=== PATIENT | female | born 1950 | race Caucasian/White ===

== ENCOUNTER 2020-05-02 10:32 | Emergency (ER) | payer MEDICARE, SELFPAY ==
--- NOTE | ~2020-05-02 | XR_ITS ---
XR chest 1V portable 05/02/2020 11:39 Indication: Weakness, nausea and vomiting. Dyspnea. Procedure: AP portable chest Comparison: No prior studies for comparison. Findings: There is airspace disease overlying the right hilum, consistent with pneumonia. Borderline heart size. No pleural effusion, edema or pneumothorax. No acute osseous abnormality. Impression: 1: Focal airspace disease overlying the right hilum, consistent with pneumonia. Reviewed, dictated and finalized at location B. Impression: 1: Focal airspace disease overlying the right hilum, consistent with pneumonia.
[2020-05-02 10:31] VITALS: BP 145/72; PULSE 81; RESP 22; TEMP 37.4; O2SAT 97
[2020-05-02 10:38] VITALS: PULSE 78
--- NOTE | 2020-05-02 10:38 | ECG_ITS ---
Measurements Intervals [place] Rate: 74 P: 36 DC: 160 QRS: 4 QRSD: 113 T: 19 QT: 387 QTc: 431 Interpretive Statements SINUS RHYTHM INTRAVENTRICULAR CONDUCTION DELAY BORDERLINE ECG Electronically Signed On 05-02-2020 12:02:04 CDT by Gabe Vazquez D.O.
[2020-05-02 11:02] LABS: Basophils Absolute Auto 0.1 K/mm3 (0.0-0.1); Basophils Percent Auto 0.4 % (0.2-1.2); Eosinophils Percent Auto 0.1 % (0-4.4); Hematocrit 45.4 % (37.0-47.0); Hemoglobin 14.9 g/dL (12.0-15.0); Immature Granulocyte Absolute 0.13 K/mm3 (0.00-0.031); Immature Granulocyte Percent A 0.9 % (0-0.5); Lymphocytes Absolute Auto 1.04 K/mm3 (0.9-3.2); Lymphocytes Percent Auto 6.9 % (18.3-44.2); Mean Corpuscular HGB Conc 32.8 g/dl (32-36); Mean Corpuscular Volume 94.6 fl (80-100); Mean Platelet Volume 9.6 fl (7.4-10.4); Monocytes Absolute Auto 1.4 K/mm3 (0.1-0.6); Monocytes Percent Auto 9.1 % (2.6-8.5); Neutrophils Absolute Auto 12.4 K/mm3 (1.3-6.7); Neutrophils Percent Auto 82.6 % (45.5-73.1); Platelet Count Result 424 k/mm3 (150-375); Red Cell Distribution Width 12.3 % (11.5-14.5)
[2020-05-02 11:14] LABS: Alanine Aminotransferase 56 U/L (4-35); Albumin Level 4.2 g/dL (3.5-5.1); Alkaline Phosphatase 192 U/L (38-126); Anion Gap 11 mmol/L (8-16); Aspartate Amino Transferase 48 U/L (14-36); Bilirubin,Total 1.1 mg/dL (0.2-1.3); Blood Urea Nitrogen 19 mg/dL (7-17); Calcium 9.4 mg/dL (8.4-10.2); Carbon Dioxide 28 mmol/L (22-30); Chloride 99 mmol/L (98-107); Estimated CRCL calculation 48 ml/min; Estimated Glomerular Filt Rate > 60; Glucose 135 mg/dL (65-105); Lipase 68 U/L (23-300); Potassium 3.5 mmol/L (3.4-5.0); Sodium 138 mmol/L (137-145)
[2020-05-02 11:26] LABS: Troponin I < 0.012 ng/mL (0.000-0.034)
[2020-05-02 11:33] VITALS: BP 134/101; PULSE 75; RESP 20; O2SAT 96
[2020-05-02 12:08] LABS: Add Urine Microscopic? YES; Appearance Urine Clear (Clear); Bacteria Urine Trace /hpf; Bilirubin Urine 1+ (Negative); Blood Urine Negative (Negative); Color Urine Amber (Yellow); Glucose Urine UA Negative (Negative); Hyaline Casts Urine 15-19 /lpf; Ketones Urine Trace mg/dL (Negative); Leukocyte Esterase Ur Trace LEU/UL (Negative); Mucus Urine Moderate /lpf; Nitrate Urine Negative (Negative); Protein Urine 2+ mg/dL (Negative); RBC Urine 0-2 /hpf (0-2); Squamous Epithelial Cell Urine Occasional /hpf (Few); Transitional Epi Cells Urine Rare /hpf (None Seen)
[2020-05-02 12:16] LABS: Specific Grav Ur 1.036 (1.001-1.035)
[2020-05-02 12:24] VITALS: BP 148/62; PULSE 72; RESP 22; O2SAT 92
--- NOTE | 2020-05-02 13:02 | ED.GENADULT ---
HPI - General Adult General Chief complaint: Weakness Stated complaint: WEAKNESS/FEVER/N/V Time Seen by Provider: 05/02/20 10:37 Source: patient Mode of arrival: EMS Limitations: no limitations History of Present Illness HPI narrative: Patient presents with chief complaint of fatigue, nausea since Thursday. Patient states she has had nausea but not been eating very much and he has not had more than 2-3 episodes of vomiting. She denies diarrhea. Patient denies having fever, chills, headache, loss of taste or smell body aches, persistent cough, abdominal pain. Patient states that she was Covid tested at [facility] yesterday but has not yet ready received her results. Patient denies any chest pain or shortness of breath. Patient denies any recent falls or other injuries. Patient states that her usual symptoms are very vague she does not like that she has no low energy Days after he came to the emergency department to be evaluated. Encouraged Related Data Home Medications Medication Instructions Recorded Confirmed methocarbamol 500 mg PO HS 05/02/20 Allergies Allergy/AdvReac Type Severity Reaction Status Date / Time alendronate sodium Allergy Unknown Unknown Verified 05/02/20 10:39 celecoxib Allergy Unknown Unknown Verified 05/02/20 10:39 clindamycin Allergy Unknown Nausea and Verified 05/02/20 10:39 Vomiting Sulfa (Sulfonamide Allergy Unknown Nausea and Verified 05/02/20 10:39 Antibiotics) Vomiting denosumab [From Prolia] AdvReac Severe Vomiting Verified 05/02/20 10:39 ibandronate sodium AdvReac Severe Vomiting Verified 05/02/20 10:39 [From Boniva] tramadol [From Ultram] AdvReac Unknown Verified 05/02/20 10:39 STEROID Allergy Unknown NAUSEOUS Uncoded 05/02/20 10:39 TAPE AdvReac Unknown BLISTERS Uncoded 05/02/20 10:39 Review of Systems Review of Systems: Narrative: CONSTITUTIONAL: Reports fatigue denies fever, chills, or sweats. EYES: Denies visual changes, redness, or discharge. ENT: Denies rhinorrhea, congestion, sore throat, or otalgia. CARDIOVASCULAR: Denies chest pain, palpitations, or edema. RESPIRATORY: Denies cough or dyspnea. GASTROINTESTINAL: Reports nausea denies abdominal pain, vomiting, or diarrhea. GENITOURINARY: Denies dysuria or hematuria. SKIN: Denies rash or itching. MUSCULOSKELETAL: Denies back pain, joint pain, or myalgia. NEUROLOGIC: Denies headache, numbness, dizziness, or weakness. PSYCHIATRIC: Denies anxiety or depression. [facility] Past Medical History Medical History (Updated 05/02/20 @ 13:27 by Carrol Hernandez PA-C) Angina at rest Arthritis Cardiac disorder Stent placed 2005, GERD (gastroesophageal reflux disease) Hypercholesterolemia Hypertension Musculoskeletal disorder Left Achilles pain, compound vertebral fracture. Postmenopausal Tubal ligation evaluation Surgical History Surgical History H/O Spinal surgery Lumbar fusion History of hysterectomy Family History Family History Mother Diabetes mellitus, Onset Age: 75 Hypertension, Onset Age: 75 Father Family history of cardiovascular disease Other Family history of arthritis Social History Social History Smoking status: Never smoker Alcohol intake: never Exam Narrative: Exam Narrative: GENERAL: Well-appearing, well-nourished, and in no acute distress. HEAD: Normocephalic, atraumatic. EYES: PERRLA and EOMI. ENT: Nares clear, no rhinorrhea or epistaxis. Mucous membranes moist. Oropharynx without tonsillar hypertrophy exudate or other lesions. Bilateral TMs pearly with clear serous fluid bilaterally CHEST: Clear to auscultation. No respiratory distress. No wheezes rales or rhonchi HEART: Regular rate and rhythm. No murmur heard. Normal peripheral pulses. ABDOMEN: Soft, nontender to palpation, nondistended, normal active bowel donato
[2020-05-02 13:16] VITALS: BP 136/80; PULSE 82; RESP 19; TEMP 38.2; O2SAT 97
[2020-05-02] MEDS: SODIUM CHLORIDE 0.9% IV 1,000 ML 999 ML IV CONT (13:16)
[2020-05-02 14:01] VITALS: BP 139/68; PULSE 80; RESP 18; O2SAT 95
== END 2020-05-02 14:29 | disposition home or self-care (01) ==
PROVIDERS: Physician Assistant; Emergency Provider Emergency Medicine; PCP Emergency Medicine
DX: N39.0 Urinary tract infection, site not specified (principal); J18.9 Pneumonia, unspecified organism; I10 Essential (primary) hypertension; E78.00 Pure hypercholesterolemia, unspecified; M19.90 Unspecified osteoarthritis, unspecified site; Z95.5 Presence of coronary angioplasty implant and graft; Z98.1 Arthrodesis status; I45.9 Conduction disorder, unspecified
CPT/HCPCS: 36415; 71045; 80053; 81001; 83690; 84484; 85025; 87086; 87088; 87804; 93005; 96360; 99284; J7030

== ENCOUNTER → 2020-11-13 13:31 | Outpatient (CLI) | payer MEDICARE, SELFPAY ==
--- NOTE | ~2020-11-13 | MM_ITS ---
EXAMINATION: MM screening [facility] BI w opal HISTORY: Screening TECHNIQUE: Craniocaudal and mediolateral oblique 3-D tomosynthesis images were obtained and synthetic 2-D images were generated. CAD analysis was submitted and interpreted. COMPARISON: Comparison to multiple prior studies sequentially, with oldest reviewed study dated 09/09. BREAST PARENCHYMAL COMPOSITION: There are scattered areas of fibroglandular density. FINDINGS: There is no evidence of suspicious mass, calcification, or architectural distortion to sugg est malignancy in either breast. There has been no suspicious interval change. IMPRESSION: 1. No mammographic evidence of malignancy. 2. Recommend routine screening mammography in one year. BI-RADS Category 1: Negative Reviewed, dictated and finalized at location A.
== END ==
PROVIDERS: PCP Emergency Medicine; Visit Provider Emergency Medicine
DX: Z12.31 Encounter for screening mammogram for malignant neoplasm of breast (principal)
CPT/HCPCS: 77063; 77067

== ENCOUNTER 2021-09-01 23:47 | Emergency (ER) | payer MEDICARE, SELFPAY ==
--- NOTE | ~2021-09-01 | XR_ITS ---
EXAMINATION: XR chest 2V EXAM DATE: 09/02/2021 00:34 INDICATION: SOB TECHNIQUE: Frontal and lateral projections of the chest obtained and reviewed. Comparison is made to prior examination from 05/02/2020. FINDINGS: There is a treated compression fracture, probably the L1 level. The lungs are clear. Ther e are no pleural effusions. The cardiomediastinal silhouette is within normal limits. There is no p neumothorax suspected. The bones and soft tissues are unremarkable. IMPRESSION: No acute cardiopulmonary findings. Reviewed, dictated and finalized at location A. HEN CLERK
[2021-09-01 23:57] VITALS: BP 180/80; PULSE 74; RESP 24; TEMP 36.9; O2SAT 95
[2021-09-02] VITALS (15 sets, daily range): BP systolic 127–167; BP diastolic 63–77; PULSE 58–81; RESP 15–16; O2SAT 93–100
--- NOTE | 2021-09-02 00:05 | ECG_ITS ---
Measurements Intervals [place] Rate: 62 P: 77 NE: 194 QRS: 57 QRSD: 113 T: 51 QT: 413 QTc: 422 Interpretive Statements SINUS RHYTHM INTRAVENTRICULAR CONDUCTION DELAY BASELINE ARTIFACT- I, II, III, AVL, AVF, V1-V2 BORDERLINE ECG Electronically Signed On 09-02-2021 7:58:49 [employer]ENCE INST[employer]EM[employer] by Gabe Vazquez D.O.
[2021-09-02 00:15] LABS: Basophils Absolute Auto 0.1 K/mm3 (0.0-0.1); Basophils Percent Auto 0.9 % (0.2-1.2); Eosinophils Absolute Auto 0.4 K/mm3 (0-0.3); Eosinophils Percent Auto 3.7 % (0-4.4); Hematocrit 43.9 % (37.0-47.0); Hemoglobin 14.3 g/dL (12.0-15.0); Immature Granulocyte Absolute 0.05 K/mm3 (0.00-0.031); Immature Granulocyte Percent A 0.5 % (0-0.5); Lymphocytes Absolute Auto 3.68 K/mm3 (0.9-3.2); Lymphocytes Percent Auto 33.9 % (18.3-44.2); Mean Corpuscular HGB Conc 32.6 g/dl (32-36); Mean Corpuscular Hemoglobin 31.8 pg (26-34); Mean Corpuscular Volume 97.6 fl (80-100); Mean Platelet Volume 9.4 fl (7.4-10.4); Monocytes Absolute Auto 1.1 K/mm3 (0.1-0.6); Monocytes Percent Auto 9.9 % (2.6-8.5); Neutrophils Absolute Auto 5.6 K/mm3 (1.3-6.7); Neutrophils Percent Auto 51.1 % (45.5-73.1); Platelet Count Result 450 k/mm3 (150-375); Red Cell Distribution Width 12.1 % (11.5-14.5); White Blood Count 10.9 K/mm3 (4.5-10.0)
[2021-09-02 00:25] LABS: Alanine Aminotransferase 14 U/L (4-35); Albumin Level 4.2 g/dL (3.5-5.1); Alkaline Phosphatase 140 U/L (38-126); Anion Gap 11 mmol/L (8-16); Aspartate Amino Transferase 26 U/L (14-36); Bilirubin,Total 0.4 mg/dL (0.2-1.3); Blood Urea Nitrogen 26 mg/dL (7-17); Calcium 9.2 mg/dL (8.4-10.2); Carbon Dioxide 26 mmol/L (22-30); Chloride 104 mmol/L (98-107); Estimated CRCL calculation 38 ml/min; Estimated Glomerular Filt Rate 44; Glucose 110 mg/dL (65-110); Potassium 3.8 mmol/L (3.4-5.0); Sodium 141 mmol/L (137-145)
[2021-09-02] MEDS: ALBUTEROL SULFATE NEB 2.5 MG/0.5 ML INH 5 MG INHALATION (00:35)
--- NOTE | 2021-09-02 00:42 | ED.GENADULT ---
HPI - General Adult General Chief complaint: Shortness of Breath/Dyspnea Stated complaint: URI, SOB Time Seen by Provider: 09/01/21 23:55 History of Present Illness HPI narrative: 71-year-old female presenting to the emergency department for evaluation of increased shortness of breath that started this evening. Patient reports over the last 5 days she has had increased sinus pressure and nasal congestion. Patient states that tonight she had onset of difficulty breathing just prior to going to bed. Patient does take a water pill but denies any change in lower extremity swelling. Patient denies any associated chest pain with this. Patient not a smoker. Patient denies any prior history of underlying lung disease including asthma. Related Data Allergies Allergy/AdvReac Type Severity Reaction Status Date / Time alendronate sodium Allergy Unknown Unknown Verified 09/06/21 10:48 celecoxib Allergy Unknown Unknown Verified 09/06/21 10:48 clindamycin Allergy Unknown Nausea and Verified 09/06/21 10:48 Vomiting Sulfa (Sulfonamide Allergy Unknown Nausea and Verified 09/06/21 10:48 Antibiotics) Vomiting denosumab [From Prolia] AdvReac Severe Vomiting Verified 09/06/21 10:48 ibandronate sodium AdvReac Severe Vomiting Verified 09/06/21 10:48 [From Boniva] tramadol [From Ultram] AdvReac Unknown Verified 09/06/21 10:48 STEROID Allergy Unknown NAUSEOUS Uncoded 09/02/21 00:08 TAPE AdvReac Unknown BLISTERS Uncoded 09/02/21 00:08 Review of Systems Review of Systems: CONSTITUTIONAL: Denies fever, chills, or sweats. EYES: Denies visual changes, redness, or discharge. ENT: Denies rhinorrhea, congestion, sore throat, or otalgia. CARDIOVASCULAR: Denies chest pain, palpitations, or edema. RESPIRATORY: cough and SOB GASTROINTESTINAL: Denies abdominal pain, nausea, vomiting, or diarrhea. GENITOURINARY: Denies dysuria or hematuria. SKIN: Denies rash or itching. MUSCULOSKELETAL: Denies back pain, joint pain, or myalgia. [facility], [facility] Past Medical History Medical History (Updated 09/06/21 @ 14:26 by Mikey Kaur MD) Angina at rest Arthritis Cardiac disorder Stent placed 2005, GERD (gastroesophageal reflux disease) Hypercholesterolemia Hypertension Musculoskeletal disorder Left Achilles pain, compound vertebral fracture. Postmenopausal Tubal ligation evaluation Surgical History Surgical History H/O Spinal surgery Lumbar fusion History of hysterectomy Family History Family History Mother Diabetes mellitus, Onset Age: 75 Hypertension, Onset Age: 75 Father Family history of cardiovascular disease Other Family history of arthritis Social History Social History Smoking status: Never smoker Alcohol intake: never Gender identity (if verbalized by the patient): Female Exam Narrative: APPEARANCE: Well appearing, no pain, no distress, well-nourished. HEAD: normocephalic, atraumatic. EYES: PERRLA/EOMI, conjunctivae clear. NECK: Supple. No adenopathy, no masses. RESPIRATORY: Airway patent, respirations nonlabored. Clear to auscultation bilaterally, no rales, rhonchi, wheezing. CARDIOVASCULAR: Regular rate and rhythm without murmurs rubs or gallops. ABDOMINAL: Soft, nontender, nondistended, normal bowel sounds MUSCULOSKELETAL: Moves all extremities. Strength/ROM intact, No edema, No calf tenderness. NEURO: Alert. Cranial nerves II through XII intact. Good coordination SKIN: Warm, dry. Normal Color Course Course Emergency Course: Patient did feel improved with treatment emerge department. Patient was updated on results of her labs and imaging. All questions concerns were addressed. Vital Signs Vital signs: Vital Signs Temperature 98.4 F 09/01/21 23:57 Pulse Rate 74 09/01/21 23:57 Respiratory Rate 24 H 09/01/21 23:57 Blood Pressu
[2021-09-02 01:32] LABS: SARS-CoV-2 RNA PCR Negative
[2021-09-02] MEDS: AMOXICILLIN/CLAVULANATE K 875-125 MG TAB 1 TABLET PO (02:26)
--- NOTE | 2021-09-02 02:35 | PC.NURSE ---
Patient ambulated in [place]; beginning spO2 96% at rest; during ambulation, patient SpO2 between 93-94%; patient denied SOB; patient returned to room, SpO2 rebounded to 97% in approx. 30seconds
== END 2021-09-02 02:38 | disposition home or self-care (01) ==
PROVIDERS: Emergency Provider Emergency Medicine; PCP Emergency Medicine
DX: J40 Bronchitis, not specified as acute or chronic (principal); J01.01 Acute recurrent maxillary sinusitis; Z20.822 Contact with and (suspected) exposure to COVID-19; E78.00 Pure hypercholesterolemia, unspecified; I10 Essential (primary) hypertension; K21.9 Gastro-esophageal reflux disease without esophagitis; M19.90 Unspecified osteoarthritis, unspecified site; Z95.5 Presence of coronary angioplasty implant and graft; Z98.1 Arthrodesis status; I45.9 Conduction disorder, unspecified
CPT/HCPCS: 36415; 71046; 80053; 85025; 93005; 94640; 99283; A9270; C9803; U0003; U0005

== ENCOUNTER → 2022-01-06 15:35 | Outpatient (CLI) | payer MEDICARE, SELFPAY ==
--- NOTE | ~2022-01-06 | XR_ITS ---
EXAMINATION: XR chest 2V 01/06/2022 16:25 INDICATION: Acute upper respiratory infection PROCEDURE: 2 view chest COMPARISON: 09/02/2021 FINDINGS: The lungs are clear. Mild cardiomegaly. There are no pleural effusions. There is no pneumo thorax suspected. There is a lower thoracic compression fracture with vertebroplasty change. IMPRESSION: 1: NO ACUTE CARDIOPULMONARY DISEASE. Reviewed, dictated and finalized at location A.
== END ==
PROVIDERS: PCP Emergency Medicine; Visit Provider Emergency Medicine
DX: J06.9 Acute upper respiratory infection, unspecified (principal)
CPT/HCPCS: 71046

== ENCOUNTER → 2022-02-03 13:22 | Outpatient (CLI) | payer MEDICARE, SELFPAY ==
--- NOTE | ~2022-02-03 | MM_ITS ---
EXAMINATION: MM screening [place] BI w opal HISTORY: Screening mammogram TECHNIQUE: Craniocaudal and mediolateral oblique 3-D tomosynthesis images were obtained and synthetic 2-D images were generated. CAD analysis was submitted and interpreted. COMPARISON: 11/2020, 10/28/2018, 08/27/2016 bilateral screening mammogram examinations BREAST PARENCHYMAL COMPOSITION: The breasts are almost entirely fatty. FINDINGS: There is no evidence of suspicious mass, calcification, or architectural distortion to sugg est malignancy in either breast. There has been no suspicious interval change. IMPRESSION: 1. No mammographic evidence of malignancy. 2. Recommend routine screening mammography in one year. BI-RADS Category 1: Negative Reviewed, dictated and finalized at location A.
== END ==
PROVIDERS: PCP Emergency Medicine; Visit Provider Emergency Medicine
DX: Z12.31 Encounter for screening mammogram for malignant neoplasm of breast (principal)
CPT/HCPCS: 77063; 77067

== ENCOUNTER 2022-04-10 21:50 | Emergency (ER) | payer MEDICARE, SELFPAY ==
[2022-04-10] VITALS (13 sets, daily range): BP systolic 140–166; BP diastolic 65–102; PULSE 50–68; RESP 12–18; TEMP 36.5; O2SAT 95–98
--- NOTE | ~2022-04-10 | XR_ITS ---
EXAMINATION: XR chest 2V DATE: 04/10/2022 22:49 INDICATION: Palpitations TECHNIQUE: PA and lateral views of the chest were obtained. COMPARISON: Chest radiograph dated 01/06/2022 FINDINGS: The lungs remain clear with no focal airspace opacities, pulmonary edema, pleural effusion or pneumot horax. Mild cardiomegaly. Calcified right hilar lymph nodes consistent with old granulomatous disease . Thoracolumbar compression fractures with change of prior vertebroplasty. IMPRESSION: 1. Mild cardiomegaly. Reviewed, dictated and finalized at location A. IMPRESSION: 1. Mild cardiomegaly.
--- NOTE | 2022-04-10 21:51 | ECG_ITS ---
Measurements Intervals [place] Rate: 57 P: 27 MD: 203 QRS: 14 QRSD: 120 T: 7 QT: 428 QTc: 419 Interpretive Statements SINUS BRADYCARDIA INFERIOR INFARCT, AGE INDETERMINATE BASELINE ARTIFACT- I, III, AVR, AVL, AVF ABNORMAL ECG COMPARED TO ECG 09/02/2021 00:05:16 SINUS BRADYCARDIA NOW PRESENT MYOCARDIAL INFARCT FINDING NOW PRESENT Electronically Signed On 04-11-2022 7:10:11 CDT by Gabe Vazquez D.O.
--- NOTE | 2022-04-10 22:45 | ED.ARRPALP ---
HPI - Arrhythmia/Palpitations General Chief Complaint: Arrhythmia/Palpitations Stated Complaint: palpitations Time Seen by Provider: 04/10/22 22:22 Source: RN notes reviewed History of Present Illness HPI narrative: Patient presents emergency room from home for heart palpitations. Patient states that this evening she was sitting at home watching TV when she began to feel like her heart was racing. She states that symptoms lasted for approximately 30 minutes and resolved on their own and she is no longer feeling the heart palpitations she denies having any chest pain or shortness of breath with the episode she denies any previous history of heart arrhythmia denies any fevers or chills abdominal pain nausea vomiting Related Data Allergies Allergy/AdvReac Type Severity Reaction Status Date / Time alendronate sodium Allergy Unknown Unknown Verified 03/12/22 11:24 celecoxib Allergy Unknown Unknown Verified 03/12/22 11:24 clindamycin Allergy Unknown Nausea and Verified 03/12/22 11:24 Vomiting Sulfa (Sulfonamide Allergy Unknown Nausea and Verified 03/12/22 11:24 Antibiotics) Vomiting denosumab [From Prolia] AdvReac Severe Vomiting Verified 03/12/22 11:24 ibandronate sodium AdvReac Severe Vomiting Verified 03/12/22 11:24 [From Boniva] tramadol [From Ultram] AdvReac Unknown Verified 03/12/22 11:24 STEROID Allergy Unknown NAUSEOUS Uncoded 03/12/22 11:24 TAPE AdvReac Unknown BLISTERS Uncoded 03/12/22 11:24 Review of Systems Review of Systems: Gen.: Denies fevers or chills ENT: Denies congestion Respiratory: Denies shortness of breath or cough CV: See HPI GI: Denies abdominal pain nausea, emesis or diarrhea Musculoskeletal: Denies back pain or muscle pain Neuro: Denies numbness, tingling, weakness or focal weakness Skin: Denies rash Except as documented, all other systems reviewed and negative [facility] Past Medical History Medical History Angina at rest Arthritis Body mass index [BMI] 35.0-35.9, adult (06/22/17) Body mass index [BMI] 36.0-36.9, adult (05/25/17) Body mass index [BMI] 37.0-37.9, adult (01/29/16) Cardiac disorder Stent placed 2005, Chronic pain of left ankle CKD (chronic kidney disease) stage 3, GFR 30-59 ml/min Contact dermatitis and eczema Fatigue Foot tendinitis GERD (gastroesophageal reflux disease) Heart failure, unspecified Hypercholesterolemia Hypertension Mixed stress and urge urinary incontinence Musculoskeletal disorder Left Achilles pain, compound vertebral fracture. Other chronic pain Pes planus of left foot Polyosteoarthritis, unspecified Posterior tibial tendinitis, left leg Postmenopausal Respiratory tract congestion with cough Snoring Tubal ligation evaluation URI, acute Vitamin D deficiency Surgical History Surgical History H/O Spinal surgery Lumbar fusion History of hysterectomy Family History Family History Mother Diabetes mellitus, Onset Age: 75 Hypertension, Onset Age: 75 Father Family history of cardiovascular disease Other Family history of arthritis Social History Social History Smoking status: Never smoker Alcohol intake: never Gender identity (if verbalized by the patient): Female Exam Narrative: APPEARANCE: No acute distress, nontoxic, resting in bed EYES: EOMI HEENT: Normocephalic, atraumatic, OMM RESPIRATORY: No respiratory distress Clear to auscultation bilaterally with no rhonchi wheezing or rales. CARDIOVASCULAR: Regular rate and rhythm without murmurs rubs or gallops. ABDOMINAL: Soft, nontender, nondistended, no rebound or guarding MUSCULOSKELETAl: Moves all extremities. No clubbing, cyanosis or edema. NEURO: Awake and alert. Following commands, speech normal, no focal deficits SKIN:: Warm, dry. No rashes
[2022-04-10 23:03] LABS: Basophils Absolute Auto 0.1 K/mm3 (0.0-0.1); Basophils Percent Auto 1.4 % (0.2-1.2); Eosinophils Absolute Auto 0.6 K/mm3 (0-0.3); Eosinophils Percent Auto 7.3 % (0-4.4); Hematocrit 43.5 % (37.0-47.0); Hemoglobin 14.3 g/dL (12.0-15.0); Immature Granulocyte Absolute 0.02 K/mm3 (0.00-0.031); Immature Granulocyte Percent A 0.3 % (0-0.5); Lymphocytes Absolute Auto 3.28 K/mm3 (0.9-3.2); Lymphocytes Percent Auto 41.5 % (18.3-44.2); Mean Corpuscular HGB Conc 32.9 g/dl (32-36); Mean Corpuscular Hemoglobin 31.7 pg (26-34); Mean Corpuscular Volume 96.5 fl (80-100); Mean Platelet Volume 9.7 fl (7.4-10.4); Monocytes Absolute Auto 0.8 K/mm3 (0.1-0.6); Monocytes Percent Auto 10.5 % (2.6-8.5); Neutrophils Absolute Auto 3.1 K/mm3 (1.3-6.7); Platelet Count Result 416 k/mm3 (150-375); Red Blood Count 4.51 M/mm3 (4.2-5.4); Red Cell Distribution Width 12.7 % (11.5-14.5); White Blood Count 7.9 K/mm3 (4.5-10.0)
[2022-04-10 23:14] LABS: INR 0.9; Prothrombin Time 12.1 Seconds (11.1-14.7)
[2022-04-10 23:15] LABS: Alanine Aminotransferase 22 U/L (6-35); Albumin Level 4.3 g/dL (3.5-5.1); Alkaline Phosphatase 119 U/L (38-126); Anion Gap 11 mmol/L (8-16); Aspartate Amino Transferase 26 U/L (14-36); Bilirubin,Total 0.6 mg/dL (0.2-1.3); Blood Urea Nitrogen 29 mg/dL (7-17); Carbon Dioxide 27 mmol/L (22-30); Chloride 102 mmol/L (98-107); Estimated CRCL calculation 41 ml/min; Estimated Glomerular Filt Rate 49; Glucose 106 mg/dL (65-110); Lipase 83 U/L (23-300); Magnesium 2.3 mg/dL (1.6-2.3); Partial Thromboplastin Time 30.7 SECONDS (22.3-36.8); Sodium 140 mmol/L (137-145)
[2022-04-10 23:25] LABS: Troponin I < 0.012 ng/mL (0.000-0.034)
== END 2022-04-10 23:41 | disposition home or self-care (01) ==
LOC: ANHED 23:34
PROVIDERS: Emergency Provider Emergency Medicine; PCP Emergency Medicine
DX: R00.2 Palpitations (principal); I13.0 Hypertensive heart and chronic kidney disease with heart failure and stage 1 through stage 4 chronic kidney disease, or unspecified chronic kidney disease; I50.9 Heart failure, unspecified; N18.30 Chronic kidney disease, stage 3 unspecified; K21.9 Gastro-esophageal reflux disease without esophagitis; N39.46 Mixed incontinence; M19.90 Unspecified osteoarthritis, unspecified site; E55.9 Vitamin D deficiency, unspecified; Z90.710 Acquired absence of both cervix and uterus; Z98.1 Arthrodesis status; Z95.5 Presence of coronary angioplasty implant and graft; I51.7 Cardiomegaly; R00.1 Bradycardia, unspecified; R94.31 Abnormal electrocardiogram [ECG] [EKG]
CPT/HCPCS: 36415; 71046; 80053; 83690; 83735; 84484; 85025; 85610; 85730; 93005; 99284

== ENCOUNTER 2022-08-19 12:04 | Emergency (ER) | payer MEDICARE, SELFPAY ==
--- NOTE | ~2022-08-19 | XR_ITS ---
Clinical Indication: Cough And lateral views of the chest: Comparison: 04/10/2022 Findings: The lungs are clear, without evidence of focal consolidation or pleural effusion. Cardiome diastinal silhouette is within normal limits. Stable compression fracture with vertebroplasty cement at probably L1. Impression: Clear lungs. Reviewed, dictated and finalized at [facility]. OMS EXAMINER Impression: Clear lungs.
--- NOTE | 2022-08-19 12:12 | ED.URI ---
HPI - URI/Sore Throat General Chief Complaint: Upper Respiratory Infection Stated Complaint: WHEEZING/COUGH Time Seen by Provider: 08/19/22 12:13 Source: patient Mode of arrival: ambulatory Limitations: no limitations History of Present Illness HPI Narrative: 72-year-old female presents with complaint for week. Reports today worse, feeling short of breath with exertion. Afebrile. States that she was taking [id number] cough medication which was helping last night she took and it did not help at all. States she was up all night coughing. States last night while lying in bed she heard herself wheezing. Denies nausea vomiting diarrhea. Denies chest pain. All systems reviewed and negative except as noted above. Related Data Home Medications Medication Instructions Recorded Confirmed cholecalciferol (vitamin D3) 25 25 mcg PO DAILY 07/29/22 08/19/22 mcg (1,000 unit) capsule magnesium 250 mg tablet 250 mg PO DAILY 07/29/22 08/19/22 omega 3-pwm-net-fish oil 120 1 cap PO DAILY 07/29/22 08/19/22 mg-180 mg-500 mg capsule (Fish Oil) Allergies Allergy/AdvReac Type Severity Reaction Status Date / Time alendronate sodium Allergy Unknown Unknown Verified 08/19/22 12:08 celecoxib Allergy Unknown Unknown Verified 08/19/22 12:08 clindamycin Allergy Unknown Nausea and Verified 08/19/22 12:08 Vomiting Sulfa (Sulfonamide Allergy Unknown Nausea and Verified 08/19/22 12:08 Antibiotics) Vomiting denosumab [From Prolia] AdvReac Severe Vomiting Verified 08/19/22 12:08 ibandronate sodium AdvReac Severe Vomiting Verified 08/19/22 12:08 [From Boniva] tramadol [From Ultram] AdvReac Unknown Verified 08/19/22 12:08 STEROID AdvReac Unknown NAUSEOUS Uncoded 08/19/22 12:39 TAPE AdvReac Unknown BLISTERS Uncoded 08/19/22 12:08 Review of Systems Review of Systems: CONSTITUTIONAL: Denies fever, chills, or sweats. EYES: Denies visual changes, redness, or discharge. ENT: Denies rhinorrhea, congestion, sore throat, or otalgia. CARDIOVASCULAR: Denies chest pain, palpitations, or edema. RESPIRATORY: Reports cough or dyspnea with exertion. GASTROINTESTINAL: Denies abdominal pain, nausea, vomiting, or diarrhea. GENITOURINARY: Denies dysuria or hematuria. SKIN: Denies rash or itching. MUSCULOSKELETAL: Denies back pain, joint pain, or myalgia. NEUROLOGIC: Denies headache, numbness, or weakness. PSYCHIATRIC: Denies anxiety or depression. All other systems reviewed are negative, except as documented in HPI. [facility] Past Medical History Medical History Angina at rest Arthritis Body mass index [BMI] 35.0-35.9, adult (06/22/17) Body mass index [BMI] 36.0-36.9, adult (05/25/17) Body mass index [BMI] 37.0-37.9, adult (01/29/16) Cardiac disorder Stent placed 2005, Chronic pain of left ankle CKD (chronic kidney disease) stage 3, GFR 30-59 ml/min Contact dermatitis and eczema Fatigue Foot tendinitis GERD (gastroesophageal reflux disease) Heart failure, unspecified Hypercholesterolemia Hypertension Mixed stress and urge urinary incontinence Musculoskeletal disorder Left Achilles pain, compound vertebral fracture. Other chronic pain Pes planus of left foot Polyosteoarthritis, unspecified Posterior tibial tendinitis, left leg Postmenopausal Respiratory tract congestion with cough Snoring Tubal ligation evaluation URI, acute Vitamin D deficiency Surgical History Surgical History H/O Spinal surgery Lumbar fusion History of hysterectomy Family History Family History Mother Diabetes mellitus, Onset Age: 75 Hypertension, Onset Age: 75 Father Family history of cardiovascular disease Other Family history of arthritis Social History Social History Smoking status: Never smoker Alcohol intake: ne
[2022-08-19 12:14] VITALS: BP 152/74; PULSE 61; RESP 16; TEMP 37.2; O2SAT 98
== END 2022-08-19 12:43 | disposition home or self-care (01) ==
PROVIDERS: Emergency Provider Nurse Practitioner Family; PCP Emergency Medicine
DX: J20.9 Acute bronchitis, unspecified (principal); K21.9 Gastro-esophageal reflux disease without esophagitis; E78.00 Pure hypercholesterolemia, unspecified; M13.0 Polyarthritis, unspecified; E55.9 Vitamin D deficiency, unspecified; I13.0 Hypertensive heart and chronic kidney disease with heart failure and stage 1 through stage 4 chronic kidney disease, or unspecified chronic kidney disease; N18.30 Chronic kidney disease, stage 3 unspecified; I50.9 Heart failure, unspecified; I20.9 Angina pectoris, unspecified
CPT/HCPCS: 71046; 99213; G0463

== ENCOUNTER 2023-04-23 00:25 | Emergency (ER) | payer MEDICARE, SELFPAY ==
--- NOTE | ~2023-04-23 | XR_ITS ---
Clinical Indication: Cough PA and lateral views of the chest: Comparison: 08/19/2022 Findings: The lungs are clear, without evidence of focal consolidation or pleural effusion. Cardiome diastinal silhouette is stable, now with pacemaker device. There is vertebroplasty at L1. Impression: Clear lungs. Pacemaker device. Reviewed, dictated and finalized at location . Impression: Clear lungs. Pacemaker device.
[2023-04-23 00:31] VITALS: BP 127/50; PULSE 68; RESP 22; TEMP 37; O2SAT 92
--- NOTE | 2023-04-23 00:34 | ECG_ITS ---
Measurements Intervals [place] Rate: 66 P: 42 NV: 164 QRS: 50 QRSD: 110 T: 17 QT: 428 QTc: 449 Interpretive Statements SINUS RHYTHM POSSIBLE INFERIOR MYOCARDIAL INFARCTION , PROBABLY OLD [30 ms Q WAVE IN II/aVF] ABNORMAL ECG COMPARED TO ECG 04/10/2022 22:03:48 SINUS RHYTHM NOW PRESENT Electronically Signed On 04-23-2023 9:02:12 CDT by Hemal Baez M.D.
[2023-04-23 00:48] VITALS: BP 131/59; PULSE 65; PULSE 68; RESP 24; O2SAT 93
[2023-04-23 00:54] VITALS: O2SAT 93
[2023-04-23] MEDS: BENZONATATE 100 MG CAPSULE 200 MG PO (01:41)
[2023-04-23] MEDS: predniSONE 20 MG TABLET 40 MG PO (01:41)
--- NOTE | 2023-04-23 01:57 | PC.NURSE ---
Dropped a tesslon danyell on the floor, pulled one more from pyxis.
[2023-04-23 01:58] VITALS: BP 121/63; PULSE 66; RESP 19; O2SAT 93
--- NOTE | 2023-04-23 02:05 | ED.GENADULT ---
HPI - General Adult General Chief complaint: Shortness of Breath/Dyspnea Stated complaint: shortness of breath Time Seen by Provider: 04/23/23 01:09 History of Present Illness HPI narrative: Patient is a 73-year-old female presents emerged department with chief complaint of cough and increasing shortness of breath. The patient reports she has had a cough been productive of yellowish-green sputum patient reports symptoms been ongoing for several weeks. Patient states that she normally has an episode like this every year about this time and normally gets treated with antibiotics and sometimes is treated with steroids the patient does report she has been wheezing some. The patient denies chest pain denies lower extremity edema Related Data Home Medications Medication Instructions Recorded Confirmed cholecalciferol (vitamin D3) 25 25 mcg PO DAILY 07/29/22 03/20/23 mcg (1,000 unit) capsule magnesium 250 mg tablet 250 mg PO DAILY 07/29/22 03/20/23 omega 5-vti-wcp-fish oil 120 1 cap PO DAILY 07/29/22 03/20/23 mg-180 mg-500 mg capsule (Fish Oil) Allergies Allergy/AdvReac Type Severity Reaction Status Date / Time albuterol Allergy Intermediate Confusion Verified 04/23/23 00:52 alendronate sodium Allergy Unknown Unknown Verified 04/23/23 00:52 celecoxib Allergy Unknown Unknown Verified 04/23/23 00:52 clindamycin Allergy Unknown Nausea and Verified 04/23/23 00:52 Vomiting Sulfa (Sulfonamide Allergy Unknown Nausea and Verified 04/23/23 00:52 Antibiotics) Vomiting denosumab [From Prolia] AdvReac Severe Vomiting Verified 04/23/23 00:52 ibandronate sodium AdvReac Severe Vomiting Verified 04/23/23 00:52 [From Boniva] tramadol [From Ultram] AdvReac Unknown Verified 04/23/23 00:52 STEROID AdvReac Unknown NAUSEOUS Uncoded 04/23/23 00:52 TAPE AdvReac Unknown BLISTERS Uncoded 04/23/23 00:52 Review of Systems Review of Systems: A 10 system review of systems was completed on the patient and is negative except for what is stated in the HPI. Nursing and ancillary documentation was reviewed. [facility] Past Medical History Medical History Angina at rest Arthritis Body mass index [BMI] 35.0-35.9, adult (06/22/17) Body mass index [BMI] 36.0-36.9, adult (05/25/17) Body mass index [BMI] 37.0-37.9, adult (01/29/16) CAD (coronary artery disease) Cardiac disorder Stent placed 2005, Chronic pain of left ankle CKD (chronic kidney disease) stage 3, GFR 30-59 ml/min Contact dermatitis and eczema Fatigue Foot tendinitis GERD (gastroesophageal reflux disease) Heart failure, unspecified Hypercholesterolemia Hypertension Mixed stress and urge urinary incontinence Musculoskeletal disorder Left Achilles pain, compound vertebral fracture. Other chronic pain Paroxysmal atrial fibrillation Pes planus of left foot Polyosteoarthritis, unspecified Posterior tibial tendinitis, left leg Postmenopausal Respiratory tract congestion with cough Snoring Tubal ligation evaluation URI, acute Vitamin D deficiency Surgical History Surgical History H/O Spinal surgery Lumbar fusion History of hysterectomy Family History Family History Mother Diabetes mellitus, Onset Age: 75 Hypertension, Onset Age: 75 Father Family history of cardiovascular disease Other Family history of arthritis Social History Social History Smoking status: Never smoker Alcohol intake: never Lack of Transportation: No Lack of Food: Never True Current Housing: I Have Housing Concerned About Future Housing: No Difficulty Paying Gas/Electric Bills: No Difficulty Paying for Meds: No Currently Unemployed: No Education: High School Diploma/GED Difficulty w/ Childcare or Family Care: No
[2023-04-23 03:22] VITALS: BP 122/54; PULSE 60; RESP 20; O2SAT 93
== END 2023-04-23 03:10 | disposition home or self-care (01) ==
PROVIDERS: Emergency Provider Emergency Medicine; PCP Emergency Medicine
DX: J20.8 Acute bronchitis due to other specified organisms (principal); B96.89 Other specified bacterial agents as the cause of diseases classified elsewhere; I48.0 Paroxysmal atrial fibrillation; I25.10 Atherosclerotic heart disease of native coronary artery without angina pectoris; I13.0 Hypertensive heart and chronic kidney disease with heart failure and stage 1 through stage 4 chronic kidney disease, or unspecified chronic kidney disease; N18.30 Chronic kidney disease, stage 3 unspecified; I50.9 Heart failure, unspecified; E78.00 Pure hypercholesterolemia, unspecified; E55.9 Vitamin D deficiency, unspecified; N39.46 Mixed incontinence; K21.9 Gastro-esophageal reflux disease without esophagitis; M19.90 Unspecified osteoarthritis, unspecified site; Z98.1 Arthrodesis status; Z90.710 Acquired absence of both cervix and uterus
CPT/HCPCS: 71046; 93005; 99283; A9270; J7512

== ENCOUNTER → 2023-05-20 11:05 | Outpatient (CLI) | payer MEDICARE, SELFPAY ==
--- NOTE | ~2023-05-20 | MM_ITS ---
EXAMINATION: MM screening [place] BI w opal HISTORY: Screening TECHNIQUE: Craniocaudal and mediolateral oblique 3-D tomosynthesis images were obtained and synthetic 2-D images were generated. CAD analysis was submitted and interpreted. COMPARISON: Comparison to multiple prior studies sequentially, with oldest reviewed study dated 08/08. BREAST PARENCHYMAL COMPOSITION: The breasts are almost entirely fatty. FINDINGS: There is no evidence of suspicious mass, calcification, or architectural distortion to sugg est malignancy in either breast. There has been no suspicious interval change. IMPRESSION: 1. No mammographic evidence of malignancy. 2. Recommend routine screening mammography in one year. BI-RADS Category 1: Negative Reviewed, dictated and finalized at location A. T TENDER
== END ==
PROVIDERS: PCP Emergency Medicine; Visit Provider Emergency Medicine
DX: Z12.31 Encounter for screening mammogram for malignant neoplasm of breast (principal)
CPT/HCPCS: 77063; 77067

== ENCOUNTER → 2023-06-17 11:41 | Outpatient (CLI) | payer MEDICARE, SELFPAY ==
--- NOTE | ~2023-06-17 | DEXA_ITS ---
Bone Density Report Name: BASHIR LIM Age: 73 Sex: Female Ethnicity: White Date of : 1950 Indication: postmenopausal osteoporosis; parental hip fracture; height loss; prior fracture; Referring Provider: EDWINA BARRETT Study: Bone densitometry was performed. Exam Date: June 17, 2023 Accession number: [id number] Bone Density: Region BMD T-score Z-score Classification AP Spine (L2, L3, L4) 0.822 -2.3 0.2 Osteopenia Femoral Neck (Right) 0.522 -2.9 -0.9 Osteoporosis Total Hip (Right) 0.569 -3.1 -1.3 Osteoporosis World Health Organization criteria for BMD impression classify patients as: Normal (T-score at or above -1.0), Osteopenia (T-score between -1.0 and -2.5), or Osteoporosis (T-score at or below -2.5). 10-year Fracture Risk: FRAX not reported because: Some T-score for Spine Total or Hip Total or Femoral Neck at or below -2.5 Prior hip or vertebral fracture Previous Exams: Region Exam Age BMD T-score BMD Change BMD Change Date g/cm2 vs Baseline vs Previous AP Spine(L2, L3, L4) 06/17/2023 73 0.822 -2.3 -0.027 -0.027 07/26/2019 69 0.849 -2.1 Total Hip(Right) 06/17/2023 73 0.569 -3.1 -0.157 -0.054 07/26/2019 69 0.623 -2.6 -0.104* -0.056* 03/05/2017 66 0.679 -2.2 -0.047* -0.047* 04/12/2014 64 0.726 -1.8 *Denotes significance at 95% confidence level, LSC for AP Spine = 0.022 g/cm2, LSC for Total Hip = 0.027 g/cm2 Clinical Information Provided by Patient: Have had a previous hip or vertebral fracture Has had a low trauma fracture Parent has had a hip fracture Has used the following medications: Vitamin D, Calcium Patient maximum height was 63.5 Menopause Age: 55 No regular weight bearing exercise Does not regularly consume dairy products Drinks caffeinated beverages Onset of menses at age 12 Number of children 5 Impression: The patient has established osteoporosis, based on the Right Total Hip T-score and the existence of a prior fracture. The patient has risk factors, including: parental hip fracture, previous fracture. No significant bone loss was observed. Discussion: HIGH RISK OF FRACTURE. BONE DENSITY IS UNDESIRABLY LOW AT ONE OR MORE SKELETAL SITES, CONSISTENT WITH POSTMENOPAUSAL OSTEOPOROSIS. This patient's lowest T-score, in a patient who has previously fractured, meets the World Health Organization's (WHO) criteria for severe osteoporosis. In untreated patients, the risk of osteoporotic fracture increases approximately
== END ==
PROVIDERS: PCP Emergency Medicine; Visit Provider Emergency Medicine
DX: M85.88 Other specified disorders of bone density and structure, other site (principal); M81.0 Age-related osteoporosis without current pathological fracture
CPT/HCPCS: 77080

== ENCOUNTER 2024-03-01 10:39 | Outpatient (CLI) | payer MEDICARE, SELFPAY ==
--- NOTE | ~2024-03-01 | US_ITS ---
EXAMINATION: US renal BI DATE: 03/01/2024 10:57 INDICATION: Chronic kidney disease stage IIIa TECHNIQUE: Multiple ultrasound grayscale images of the kidneys were obtained. COMPARISON: None. FINDINGS: The right kidney measures 7.8 x 4.0 x 4.1 cm. The left kidney measures 9.5 x 3.7 x 4.2 cm. The kidney s demonstrate normal parenchymal echogenicity. There is a 1.9 cm cyst in right kidney. There is no hy dronephrosis. The bladder is normal. There is a small volume of ascites. Calcifications in the spleen are consistent with old granulomatous disease. IMPRESSION: 1. Mild atrophy of right kidney. No hydronephrosis. 2. Small volume of ascites. Reviewed, dictated and finalized at location A.
== END 2024-03-01 10:40 ==
LOC: GOSHIMG 10:40
PROVIDERS: PCP Emergency Medicine; Visit Provider Internal Medicine Nephrology
DX: N18.31 Chronic kidney disease, stage 3a (principal); R18.8 Other ascites
CPT/HCPCS: 76775

== ENCOUNTER 2024-09-13 13:15 | Outpatient (CLI) | payer MEDICARE, SELFPAY | END 2024-09-13 13:16 | disposition home or self-care (01) | LOC: MICIMG 13:16 | PROVIDERS: PCP Emergency Medicine; Visit Provider Emergency Medicine | DX: M19.012 Primary osteoarthritis, left shoulder (principal) | CPT/HCPCS: 73200 ==

== ENCOUNTER 2024-09-28 10:12 | Emergency (ER) | payer MEDICARE, SELFPAY ==
[2024-09-28 10:31] VITALS: BP 143/72; PULSE 68; RESP 16; TEMP 36.9; O2SAT 96
--- NOTE | 2024-09-28 11:03 | ED.URI ---
HPI - URI/Sore Throat General Chief Complaint: Upper Respiratory Infection Stated Complaint: CONGESTION/SORE THROAT History of Present Illness HPI Narrative: 74-year-old female with hx asthma presented for complaint of cough, nasal congestion and sore throat. Onset 1 week. Patient uses Breo when needed and albuterol nebulizers at home. She says she has been using these more frequently for the last week. She denies chest pain, shortness of breath, wheezing nausea, vomiting, fevers or lethargy. Not taking anything OTC for symptoms. Related Data Home Medications ?Medication ?Instructions ?Recorded ?Confirmed ?Last Taken ?Type rosuvastatin 20 mg tablet 20 mg PO DAILY 07/31/23 09/06/24 Unknown History fluticasone furoate 100 1 inh inhalation DAILY 01/13/24 09/06/24 Unknown History mcg-vilanterol 25 mcg/dose inhalation powder (Breo Ellipta) apixaban 5 mg tablet (Eliquis) 5 mg PO BID 02/17/24 09/06/24 Unknown History aspirin 81 mg tablet,delayed 81 mg PO DAILY 02/17/24 09/06/24 Unknown History release cetirizine 10 mg capsule (Zyrtec) 10 mg PO DAILY PRN 02/17/24 09/06/24 Unknown History ipratropium 0.5 mg-albuterol 3 mg 3 ml inhalation Q6H PRN 02/17/24 09/06/24 Unknown History (2.5 mg base)/3 mL nebulization soln metoprolol succinate 25 mg 25 mg PO BID 02/17/24 09/06/24 Unknown History tablet,extended release 24 hr acetaminophen 325 mg tablet 650 mg PO Q6H PRN 05/13/24 09/06/24 Unknown History (Tylenol) albuterol sulfate 90 mcg/actuation 1 puff inhalation Q4H PRN 05/13/24 09/06/24 Unknown History aerosol inhaler diclofenac sodium 1 % topical gel 4 g topical QID 05/13/24 09/06/24 Unknown History guaifenesin 600 mg tablet, 600 mg PO BID 05/13/24 09/06/24 Unknown History extended release 12 hr (Mucinex) spironolactone 25 mg tablet 25 mg PO DAILY 05/13/24 09/06/24 Unknown History (Aldactone) Allergies Allergy/AdvReac Type Severity Reaction Status Date / Time adhesive Allergy Intermediate Blister Verified 09/28/24 10:56 atorvastatin Allergy Intermediate Unknown Verified 09/06/24 13:39 methylprednisolone Allergy Intermediate Unknown Verified 09/06/24 13:39 prednisone Allergy Intermediate Unknown Verified 09/06/24 13:39 Sulfa (Sulfonamide AdvReac Unknown Nausea and Verified 09/28/24 10:56 Antibiotics) Vomiting surgical tape Allergy Intermediate Blister Uncoded 09/28/24 10:56 Review of Systems Review of Systems: CONSTITUTIONAL: Denies body aches, fever, chills, or sweats. EYES: Denies visual changes, redness, or discharge. ENT: reports rhinorrhea, congestion, denies otalgia. CARDIOVASCULAR: Denies chest pain, palpitations, or edema. RESPIRATORY: reports cough denies dyspnea. GASTROINTESTINAL: Denies abdominal pain, nausea, vomiting, or diarrhea. NEUROLOGIC: Denies headache [facility] Past Medical History Medical History (Updated 09/28/24 @ 11:10 by Luann Byrd, JAYDON) Pacemaker Chronic bronchitis Chronic kidney disease Paroxysmal atrial fibrillation CAD (coronary artery disease) Wheezing Dyspnea Upper respiratory tract infection Wheezing Body mass index [BMI] 35.0-35.9, adult (06/22/17) Body mass index [BMI] 36.0-36.9, adult (05/25/17) Body mass index [BMI] 37.0-37.9, adult (01/29/16) CKD (chronic kidney disease) stage 3, GFR 30-59 ml/min Chronic pain of left ankle Contact dermatitis and eczema Fatigue Foot tendinitis Heart failure, unspecified Mixed stress and urge urinary incontinence Other chronic pain Pes planus of left foot Polyosteoarthritis, unspecified Posterior tibial tendinitis, left leg Respiratory tract congestion with cough Snoring URI, acute Vitamin D deficiency Bronchitis Bronchitis Arthritis Musculoskeletal disorder Left Achilles pain, compound vertebral fracture. Postmenopausal Tubal ligation evaluation GERD (gastroesophageal reflux disease) Hypertension Hypercholesterolemia Angina at rest Cardiac disorder Stent placed 2005, Surgical History Surgical History H/O Spinal surgery Lumbar fusion History of hysterectomy Family History Family History Mother Diabetes mellitus, Onset Age: 75 Hypertension, Onset Age: 75 Father Family history of cardiovascular disease Other Family history of arthritis Social History Social History (Updated 09/06/24 @ 13:53 by Anya Frost MA) Smoking status: Never smoker Alcohol intake: never Substance use: never Substance use type: does not use Do You Feel Safe in your Home?: Yes Current Housing: Decline to Answer Concerned About Future Housing: Decline to Answer Difficulty Paying Gas/Electric Bills: Decline to Answer Difficulty Paying for Meds: Decline to Answer Currently Unemployed: Decline to Answer Education: Decline to Answer Difficulty w/ Childcare or Family Care: Decline to Answer Gender identity (if verbalized by the patient): Female Exam Narrative: GENERAL: mildly ill-appearing, no acute distress. EYES: conjunctivae clear ENT: Mucous membranes moist. TM pearly muñoz with normal light reflex bilaterally; no tragal tenderness. Oropharynx not erythematous without lesions. No drooling, no hoarseness, no trismus, uvula midline. No tripod positioning, hot potato voice, or soft palate swelling. NECK: Supple. No lymphadenopathy CHEST: Right lower lobe with faint wheezing. No respiratory distress, speaks in full sentences. HEART: Regular rate and rhythm. SKIN: Warm, dry NEURO: Alert and oriented x3. Course Course Emergency Course: Patient is aware of diagnosis, understands and agrees to treatment plan. Anticipatory guidance given. Patient agrees to follow-up as directed and is aware of reasons to seek care at the emergency department. Portions of this record may have been created with voice recognition software Level of Care: Express Care Visit Vital Signs Vital signs: Vital Signs Temperature 98.5 F 09/28/24 10:31 Pulse Rate 68 09/28/24 10:31 Respiratory Rate 16 09/28/24 10:31 Blood Pressure 143/72 H 09/28/24 10:31 Pulse Oximetry 96 09/28/24 10:31 Temperature 98.5 F 09/28/24 10:31 Pulse Rate 68 09/28/24 10:31 Respiratory Rate 16 09/28/24 10:31 Blood Pressure 143/72 H 09/28/24 10:31 Pulse Oximetry 96 09/28/24 10:31 MDM - URI/Sore Throat MDM Narrative Medical decision making narrative: neg strep result reviewed with pt. Advise supportive treatments and s/s to go to the ER. Reviewed RX. Patient is appropriate for outpatient treatment and follow-up. Differential Diagnosis Differential diagnosis: Likely upper respiratory infection, sinusitis, viral infection, bronchitis, influenza and pharyngitis Lab Data Labs: Lab Results 09/28/24 Range/Units 11:20 POC Grp A Strep Screen Negative (Negative) Discharge Plan Discharge Clinical Impression: Bronchitis Patient Disposition: Home, Self-Care Condition: Stable Instructions: Antibiotic Form, Acute Bronchitis (ED) Additional Instructions: Rapid strep swab was negative today if symptoms are due to a viral illness, it is not treated with antibiotics. Viral symptoms can be present for up to 10-14 days. Take the steroid as directed Use your previously prescribed albuterol inhaler as needed for shortness of breath or wheezing Recommendations: Flonase spray and Zyrtec for sinus congestion Cough syrup may cause drowsiness; avoid driving or take it at night time. Coricidin HBP if you have hypertension Tylenol every 8 hours as needed for pain/fever Soft foods, cool liquids, warm tea. Gargle with warm saltwater twice a day. Chloraseptic spray and throat lozenges. Rest and stay hydrated. --Follow up with your PCP, call today to schedule an appointment --Go to the ER immediately for any worsening symptoms or concerns Patient Language: Cypriot Prescriptions: New azithromycin [Zithromax Z-Jaswant] 250 mg tablet See Rx Instructions .ROUTE .COMPLEX Qty: 6 0RF Rx Instructions: For 250 mg dose pack: take 500 mg today (day 1), then 250 mg for 4 days (days 2-5) benzonatate 200 mg capsule 200 mg PO TID PRN (Reason: cough) Qty: 20 0RF methylprednisolone [Medrol (Jaswant)] 4 mg tablets,dose pack See Rx Instructions .ROUTE .COMPLEX Qty: 21 0RF Rx Instructions: orally per package directions No Action fluticasone furoate-vilanterol [Breo Ellipta] 100-25 mcg/dose blister with device 1 inh inhalation DAILY metoprolol succinate 25 mg tablet extended release 24 hr 25 mg PO BID spironolactone [Aldactone] 25 mg tablet 25 mg PO DAILY guaifenesin [Mucinex] 600 mg tablet extended release 12hr 600 mg PO BID albuterol sulfate 90 mcg/actuation HFA aerosol inhaler 1 puff inhalation Q4H PRN acetaminophen [Tylenol] 325 mg tablet 650 mg PO Q6H PRN diclofenac sodium 1 % gel 4 g topical QID Rx Instructions: apply to single knee, ankle, foot; for foot includes sole/toes/top of foot rosuvastatin 20 mg tablet 20 mg PO DAILY Eliquis 5 mg tablet 5 mg PO BID aspirin 81 mg tablet,delayed release (DR/EC) 81 mg PO DAILY Zyrtec 10 mg capsule 10 mg PO DAILY PRN ipratropium-albuterol 0.5 mg-3 mg(2.5 mg base)/3 mL solution for nebulization 3 ml inhalation Q6H PRN furosemide 20 mg tablet See Rx Instructions .ROUTE .COMPLEX Qty: 90 3RF Dose Instruction: TAKE 1 TABLET BY MOUTH DAILY Rx Instructions: TAKE 1 TABLET BY MOUTH DAILY pantoprazole 40 mg tablet,delayed release (DR/EC) See Rx Instructions .ROUTE .COMPLEX Qty: 180 3RF Dose Instruction: TAKE 1 TABLET BY MOUTH TWICE DAILY Rx Instructions: TAKE 1 TABLET BY MOUTH TWICE DAILY Jardiance 10 mg tablet 10 mg PO DAILY Qty: 90 3RF irbesartan 75 mg tablet 75 mg PO DAILY Qty: 30 7RF Follow-up/Referrals: Kg Dill MD [Primary Care Provider] -
[2024-09-28 11:22] LABS: EDSTREPNEGPOS1 Negative (Negative)
== END 2024-09-28 11:17 | disposition home or self-care (01) ==
PROVIDERS: Emergency Provider Nurse Practitioner Family; PCP Emergency Medicine
DX: J40 Bronchitis, not specified as acute or chronic (principal); I13.0 Hypertensive heart and chronic kidney disease with heart failure and stage 1 through stage 4 chronic kidney disease, or unspecified chronic kidney disease; N18.30 Chronic kidney disease, stage 3 unspecified; I50.9 Heart failure, unspecified; Z95.0 Presence of cardiac pacemaker; I48.0 Paroxysmal atrial fibrillation; I25.110 Atherosclerotic heart disease of native coronary artery with unstable angina pectoris; M19.90 Unspecified osteoarthritis, unspecified site; K21.9 Gastro-esophageal reflux disease without esophagitis; E78.00 Pure hypercholesterolemia, unspecified; Z95.5 Presence of coronary angioplasty implant and graft; Z79.01 Long term (current) use of anticoagulants; Z79.82 Long term (current) use of aspirin
CPT/HCPCS: 87081; 87880; 99213; G0463